=== PATIENT | female | born 2000 | race Two or more races ===

== ENCOUNTER 2024-10-12 18:29 | Emergency (ER) | payer OTHER ==
[~2024-10-12] VITALS: Ht 157.5 cm; Wt 61.2 kg
[2024-10-12 19:00] VITALS: BP 116/82; O2SAT 100
[2024-10-12] MEDS ORDERED: KETOROLAC TROMETHAMINE 30 MG VIAL IM STA (20:29)
[2024-10-12] MEDS ORDERED: TRAMADOL HCL 50 MG TABLET PO STA (20:30)
[2024-10-12] MEDS ORDERED: CEFTRIAXONE SODIUM 1,000 MG VIAL IM STA (20:32)
[2024-10-12] MEDS ORDERED: KETOROLAC TROMETHAMINE 30 MG VIAL ONE (20:34)
[2024-10-12] MEDS ORDERED: CEFTRIAXONE SODIUM 1,000 MG VIAL ONE (20:34)
== END 2024-10-12 20:45 | disposition home or self-care (01) ==
LOC: ER 18:58
DX: R68.84 Jaw pain (principal)